=== PATIENT | female | born 1950 | race Caucasian/White ===

== ENCOUNTER 2017-11-12 21:24 | Observation (INO) | payer MEDICARE, OTHER ==
[~2017-11-12] VITALS: Ht 160 cm; Wt 82.9 kg
[~2017-11-12 21:24] MED LIST: ALDA2525 PO; ASPI1TAB69 PO; CLOB0.055 TOPICAL; CYCL10TA PO; DICY10CA12 PO; FLUO0.05 TOPICAL; LATA.005%O EACH EYE; MONT10TA2 PO; OMEP20TA93 PO; PROM25TA10 PO
[2017-11-12 21:35] VITALS: BP 201/101; PULSE 77; RESP 20; TEMP 97.9; O2SAT 96
[2017-11-12 21:40] VITALS: BP 189/99; PULSE 66; RESP 16; O2SAT 99
[2017-11-12 22:26] LABS: AUTOMATED NEUTROPHIL # 2.7 TH/MM3 (1.8-7.7); BASOPHIL # 0.2 TH/MM3 (0-0.2); BASOPHIL % 3.4 % (0.0-2.0); EOSINOPHIL # 0.3 TH/MM3 (0-0.4); EOSINOPHIL % 3.8 % (0.0-4.0); HEMATOCRIT 42.4 % (35.0-46.0); HEMOGLOBIN 13.2 GM/DL (11.6-15.3); LYMPH % 47.7 % (9.0-44.0); LYMPHOCYTE # 3.3 TH/MM3 (1.0-4.8); MEAN CELL VOLUME 85.9 FL (80.0-100.0); MEAN CORPUSCULAR HEMOGLOBIN 26.8 PG (27.0-34.0); MEAN CORPUSCULAR HGB CONC 31.2 % (32.0-36.0); MONO % 6.8 % (0.0-8.0); MONOCYTE # 0.5 TH/MM3 (0-0.9); NEUT % 38.3 % (16.0-70.0); PLATELET COUNT 265 TH/MM3 (150-450); RED BLOOD COUNT 4.94 MIL/MM3 (4.00-5.30); RED CELL DISTRIBUTION WIDTH 16.6 % (11.6-17.2)
[2017-11-12 22:33] LABS: CHLORIDE 108 MEQ/L (98-107); SODIUM (NA) 141 MEQ/L (136-145)
[2017-11-12 22:36] LABS: ALBUMIN 3.4 GM/DL (3.4-5.0); BICARBONATE 25.6 MEQ/L (21.0-32.0); CALCIUM 9.4 MG/DL (8.5-10.1); GLUCOSE,RANDOM 101 MG/DL (74-106)
[2017-11-12 22:37] LABS: BLOOD UREA NITROGEN 17 MG/DL (7-18)
[2017-11-12 22:39] LABS: ALT (GPT) 81 U/L (10-53); AST (GOT) 51 U/L (15-37)
[2017-11-12 22:40] LABS: CREATININE 0.84 MG/DL (0.50-1.00); GLOMERULAR FILTRATION RATE 68 ML/MIN (>89)
[2017-11-12 22:41] LABS: TOTAL BILIRUBIN ADULT 0.3 MG/DL (0.2-1.0); TOTAL PROTEIN 7.9 GM/DL (6.4-8.2)
[2017-11-12 22:42] LABS: ALKALINE PHOSPHATASE 107 U/L (45-117)
[2017-11-12 22:44] LABS: TROPONIN I 0.18 NG/ML (0.02-0.05)
[2017-11-12 22:47] VITALS: BP 166/94; PULSE 78; RESP 16; O2SAT 98
--- NOTE | 2017-11-12 23:11 | PD ---
HPI Chief Complaint: Chest Pain Time Seen by Provider: 22:49 Travel History International Travel<30 days: No Contact w/Intl Traveler<30days: No Traveled to known affect area: No History of Present Illness HPI The patient is a 67-year-old female with a history of heart disease who complains of multiple types of chest pain beginning yesterday. She has tightness in her chest but also some sharp pains in her right chest. She does have nausea, shortness of breath as well as some diaphoresis. She does have radiation to her jaw and left arm. She denies any fever. She also complains of some slight vertigo and nausea and a headache. She does have a history of anxiety. Dr. jacobo is her management scientist. She does not have a primary care physician. She does have a history of hypertension and migraine headaches as well as seizures. PFSH Past Medical History Hx Anticoagulant Therapy: Yes (ASA) Autoimmune Disease: No Anxiety: Yes Cancer: No Cardiovascular Problems: Yes (HEART FAILURE) Chest Pain: Yes Diabetes: No Diminished Hearing: No Endocrine: No Gastrointestinal Disorders: Yes GERD: Yes Glaucoma: Yes Genitourinary: No Headaches: No Hepatitis: No Hiatal Hernia: No Hypertension: Yes Immune Disorder: No Implanted Vascular Access Dvce: Yes Medical other: No Musculoskeletal: Yes Neurologic: Yes Psychiatric: Yes Reproductive: No Respiratory: Yes Immunizations Current: Yes Migraines: Yes Seizures: Yes Thyroid Disease: No PNEUMOCCOCAL Vaccine (Year): 2 Menopausal: Yes Past Surgical History Abdominal Surgery: No Cardiac Surgery: No Section: Yes Ear Surgery: No Endocrine Surgery: No Eye Surgery: Yes (CATARACT REMOVAL) Genitourinary Surgery: No Gynecologic Surgery: Yes (PART HYST) Hysterectomy: Yes (PARTIAL) Neurologic Surgery: No Oral Surgery: No Pacemaker: No Thoracic Surgery: No Other Surgery: Yes Social History Alcohol Use: No Tobacco Use: No Substance Use: No Allergies-Medications (Allergen,Severity, Reaction): Coded Allergies: diclofenac (Unverified Allergy, Severe, 09/05/17) etodolac (Unverified Allergy, Severe, 09/05/17) flurbiprofen (Unverified Allergy, Severe, 09/05/17) ibuprofen (Unverified Allergy, Severe, 09/05/17) indomethacin (Unverified Allergy, Severe, 09/05/17) ketoprofen (Unverified Allergy, Severe, 09/05/17) ketorolac (Unverified Allergy, Severe, 09/05/17) naproxen (Unverified Allergy, Severe, 09/05/17) oxaprozin (Unverified Allergy, Severe, 09/05/17) tizanidine (Unverified Allergy, Severe, DRY MOUTH, DIZZINESS, 09/05/17) cortisone (Unverified Allergy, Mild, HAS GLAUCOMA AND WAS TOLD NEVER TO TAKE CORTISONE, 09/05/17) Uncoded Allergies: antihistamine (Adverse Reaction, Intermediate, headaches, 09/17/12) Reported Meds & Prescriptions Reported Meds & Active Scripts Active Phenergan (Promethazine HCl) 25 Mg Tablet 25 Mg PO Q6H PRN Singulair (Montelukast Sodium) 10 Mg Tab 10 Mg PO HS Omeprazole 20 Mg Tab 20 Mg PO DAILY Dicyclomine (Dicyclomine HCl) 10 Mg Cap 10 Mg PO TID PRN Flexeril (Cyclobenzaprine HCl) 10 Mg Tab 10 Mg PO BID Reported Xalatan Opth Drops (Latanoprost) 0.005% Drops 1 Drop EACH EYE HS Aldactazide (HCTZ/Spironolactone) 25-25 Mg Tab 1 Tab PO BIDPC Review of Systems Except as stated in HPI: all other systems reviewed are Neg Physical Exam Narrative GENERAL: The patient is anxious, alert, oriented 3 and slight apparent distress with her chest pains. Her vital signs show blood pressure 166/94 but are otherwise normal. SKIN: Focused skin assessment warm/dry. No skin rash is seen. HEAD: Atraumatic. Normocephalic. EYES: Pupils equal and round. No scleral icterus. No injection or drainage. ENT: No nasal bleeding or discharge. Mucous membranes pink and moist. NECK: Trachea midline. No JVD. CARDIOVASCULAR: Regular rate and rhythm. No murmur appreciated. RESPIRATORY: No accessory muscle use. Clear to auscultation. Breath sounds equal bilaterally. I can reproduce completely some of the patient's chest pain by pressing on the chest wall. The patient has multiple chest pain sensations and I cannot reproduce the tightness. GASTROINTESTINAL: Abdomen soft, non-tender, nondistended. Hepatic and splenic margins not palpable. MUSCULOSKELETAL: No obvious deformities. No clubbing. No cyanosis. No edema. NEUROLOGICAL: Awake and alert. No obvious cranial nerve deficits. Motor grossly within normal limits. Normal speech. PSYCHIATRIC: Appropriate mood and affect; insight and judgment normal. Data Data Last Documented VS Vital Signs Date Time Temp Pulse Resp B/P (MAP) Pulse Ox O2 Delivery O2 Flow Rate FiO2 11/12/17 22:47 78 16 166/94 (118) 98 Room Air 11/12/17 21:35 97.9 Orders Orders Complete Blood Count With Diff (11/12/17 22:13) Troponin I (11/12/17 22:13) Basic Metabolic Panel (Bmp) (11/12/17 22:13) Comprehensive Metabolic Panel (11/12/17 22:13) Electrocardiogram (11/12/17 ) Chest, Single Ap (11/12/17 ) B-Type Natriuretic Peptide (11/12/17 23:13) Labs Laboratory Tests Test 11/12/17 22:00 White Blood Count 7.0 TH/MM3 Red Blood Count 4.94 MIL/MM3 Hemoglobin 13.2 GM/DL Hematocrit 42.4 % Mean Corpuscular Volume 85.9 FL Mean Corpuscular Hemoglobin 26.8 PG Mean Corpuscular Hemoglobin Concent 31.2 % Red Cell Distribution Width 16.6 % Platelet Count 265 TH/MM3 Mean Platelet Volume 9.0 FL Neutrophils (%) (Auto) 38.3 % Lymphocytes (%) (Auto) 47.7 % Monocytes (%) (Auto) 6.8 % Eosinophils (%) (Auto) 3.8 % Basophils (%) (Auto) 3.4 % Neutrophils # (Auto) 2.7 TH/MM3 Lymphocytes # (Auto) 3.3 TH/MM3 Monocytes # (Auto) 0.5 TH/MM3 Eosinophils # (Auto) 0.3 TH/MM3 Basophils # (Auto) 0.2 TH/MM3 CBC Comment DIFF FINAL Differential Comment Blood Urea Nitrogen 17 MG/DL Creatinine 0.84 MG/DL Random Glucose 101 MG/DL Total Protein 7.9 GM/DL Albumin 3.4 GM/DL Calcium Level 9.4 MG/DL Alkaline Phosphatase 107 U/L Aspartate Amino Transf (AST/SGOT) 51 U/L Alanine Aminotransferase (ALT/SGPT) 81 U/L Total Bilirubin 0.3 MG/DL Sodium Level 141 MEQ/L Potassium Level 3.8 MEQ/L Chloride Level 108 MEQ/L Carbon Dioxide Level 25.6 MEQ/L Anion Gap 7 MEQ/L Estimat Glomerular Filtration Rate 68 ML/MIN Troponin I 0.18 NG/ML MDM Medical Decision Making Medical Screen Exam Complete: Yes Emergency Medical Condition: Yes Medical Record Reviewed: Yes Interpretation(s) The EKG shows sinus rhythm with left ventricular hypertrophy and an old inferior myocardial infarction with Q waves in 3 and aVF. There is no acute ST elevation present. The troponin I is 0.18. [place] 68, GOT of 51, GPT of 81 but is otherwise unremarkable. The CBC is normal. Differential Diagnosis Acute coronary syndrome, chest wall pain, anxiety, congestive heart failure Narrative Course The patient has multiple chest pains, some of which are clearly musculoskeletal in nature and others which are concerning for cardiac type pain. The patient is anxious and has multiple complaints other than chest pain. She has nausea, headache. The patient does have a slight troponin I elevation at this time and has had elevation or troponin I for prolonged period of time in 2016. I discussed the patient with Dr. Copeland, the patient will be 23 hour observation to her. She will be admitted to [place]. Physician Communication Physician Communication I discussed the patient with Dr. Copeland. Admitting Information Admitting Physician Requests: Observation Robbie Hitchcock MD Nov 12, 2017 23:11
--- NOTE | 2017-11-12 23:19 | RADRPT ---
EXAM DATE/TIME: 11/12/2017 23:04 [facility] COMPARISON: CHEST PA & LAT, October 07, 2016, 14:47. INDICATIONS : Chest pain MEDICAL HISTORY : None. SURGICAL HISTORY : Cardiac stents. ENCOUNTER: Initial ACUITY: 1 day PAIN SCORE: 10/10 LOCATION: Bilateral chest FINDINGS: The lungs are clear without infiltrate, nodule, or mass. There is no appreciable pleural effusion fo r technique. Heart and mediastinum are unremarkable. CONCLUSION: No acute cardiopulmonary disease. Bg Blackwell MD on November 12, 2017 at 23:17 Board Certified Radiologist. This report was verified electronically.
[2017-11-12] MEDS ORDERED: ALPRAZolam 0.25 MG TAB PO PRN (23:30)
[2017-11-12] MEDS ORDERED: ACETAMINOPHEN 500 MG CPLT PO PRN (23:30)
[2017-11-12] MEDS: LATANOPROST 0.005% OPHT SOLN 2.5 ML BTL EACH EYE SCH (23:30)
[2017-11-12] MEDS ORDERED: ONDANSETRON HCL 4 MG/2 ML VIAL IV PUSH PRN (23:30)
[2017-11-12] MEDS ORDERED: NITROGLYCERIN 0.4 MG SL 25 TABS/BTL SL PRN (23:30)
[2017-11-12] MEDS ORDERED: SODIUM CHLORIDE 0.9% FLUSH 10 ML FLUSH IV FLUSH PRN (23:30)
[2017-11-12 23:38] VITALS: BP 199/100; PULSE 78; RESP 16; O2SAT 100
[2017-11-13] VITALS (11 sets, daily range): BP systolic 117–198; BP diastolic 69–98; PULSE 61–86; RESP 14–20; TEMP 96.1–98; O2SAT 94–99
[2017-11-13] MEDS ORDERED: HEPARIN SODIUM - SQ 10,000 UNITS/ML VIAL SQ SCH
[2017-11-13 04:59] LABS: TROPONIN I 0.18 NG/ML (0.02-0.05)
[2017-11-13] MEDS ORDERED: HEPARIN-D5W 25,000 U/250 ML 250 ML IV PRN (08:30)
[2017-11-13] MEDS ORDERED: SPIRONOLACTONE/HCTZ 25 MG/25 MG TAB PO SCH (09:00)
[2017-11-13 09:16] LABS: HEMATOCRIT 38.7 % (35.0-46.0); HEMOGLOBIN 12.8 GM/DL (11.6-15.3); MEAN CORPUSCULAR HEMOGLOBIN 27.8 PG (27.0-34.0); MEAN CORPUSCULAR HGB CONC 33.1 % (32.0-36.0); MEAN PLATELET VOLUME 8.3 FL (7.0-11.0); PLATELET COUNT 210 TH/MM3 (150-450); RED CELL DISTRIBUTION WIDTH 15.6 % (11.6-17.2); WHITE BLOOD COUNT 6.1 TH/MM3 (4.0-11.0)
[2017-11-13] MEDS: SPIRONOLACTONE 25 MG TAB PO SCH ×2 (09:35→17:47)
[2017-11-13] MEDS: SODIUM CHLORIDE 0.9% FLUSH 10 ML FLUSH IV FLUSH SCH ×2 (09:35→20:37)
[2017-11-13] MEDS: HYDROCHLOROTHIAZIDE 25 MG TAB PO SCH ×2 (09:35→17:47)
[2017-11-13] MEDS: PANTOPRAZOLE SOD 20 MG DELAYED RELEASE TAB PO SCH (09:35)
[2017-11-13 09:59] LABS: TROPONIN I 0.17 NG/ML (0.02-0.05)
--- NOTE | 2017-11-13 11:45 | HHI.HP ---
[facility] No Primary Care Physician Admission Diagnosis Chest pain Diagnoses: (1) Atypical chest pain Chief Complaint: Multiple complaints Travel History International Travel<30 Days: No Contact w/Intl Traveler <30 Da: No Traveled to Known Affected Are: No History of Present Illness Written by Oliva Mann, acting as scribe for Dr. Darling on 11/13/17 at 11:28. Ms. Moreno is a 67-year-old female patient with a known medical history of CHF , HTN, GERD and CAD with stent placement who presented to the ED with multiple complaints including chest pain, headache, dizziness and left arm numbness. Patient states she has noticed this chest pain x 1 week, intermittent and sharp , stabbing, and "spasm-like" in nature, occurs more with exertion, located in her midsternal chest but states sometimes it occurs "all over her chest area" with associated nausea, dizziness, headache, toothaches, and left arm numbness. Patient states she has also been checking her BP at home with increased readings some as high as 200/110. Denies any palpitations or vomiting. Denies any new changes to her medications. Does admit to subjective fevers but has not taken her temperature at home. Does also complain of diarrhea x 4 days and an intermittent right upper quadrant, sharp pain. At the time of assessment patient states that her symptoms have resolved and has had no new complaints overnight. Patient does see Dr. Diaz in the office. She also suffered from a cardiac arrest and did undergo a cardiac catheterization in February of 2016. Denies following with a PCP. Last ECHO was done a few months ago showing an EF of 35%. Positive Ford's sign present on examination. Review of Systems Constitutional: COMPLAINS OF: Fever, Chills Eyes: DENIES: Blurred vision, Diplopia Respiratory: COMPLAINS OF: Cough, DENIES: Shortness of breath Cardiovascular: COMPLAINS OF: Chest pain, Palpitations Gastrointestinal: COMPLAINS OF: Abdominal pain (right UQ), Diarrhea, Nausea, DENIES: Black stools, Bloody stools, Vomiting Psychiatric: COMPLAINS OF: Anxiety Except as stated in HPI: all other systems reviewed are Neg Past Family Social History Past Medical History Hypertension including multiple episodes of hypertensive urgencies. Traumatic brain injury 2009 Chronic headache Vertigo Cardiac arrest 2016 Cardiac catheterization with stent and pacemaker placement 2016. Past Surgical History Knee surgery Partial Hysterectomy Pacemaker placement 2016 Cataract removal Reported Medications Active Phenergan (Promethazine HCl) 25 Mg Tablet 25 Mg PO Q6H PRN Singulair (Montelukast Sodium) 10 Mg Tab 10 Mg PO HS Omeprazole 20 Mg Tab 20 Mg PO DAILY Dicyclomine (Dicyclomine HCl) 10 Mg Cap 10 Mg PO TID PRN Flexeril (Cyclobenzaprine HCl) 10 Mg Tab 10 Mg PO BID Reported Xalatan Opth Drops (Latanoprost) 0.005% Drops 1 Drop EACH EYE HS Aldactazide (HCTZ/Spironolactone) 25-25 Mg Tab 1 Tab PO BIDPC Allergies: Coded Allergies: diclofenac (Unverified Allergy, Severe, 09/05/17) etodolac (Unverified Allergy, Severe, 09/05/17) flurbiprofen (Unverified Allergy, Severe, 09/05/17) ibuprofen (Unverified Allergy, Severe, 09/05/17) indomethacin (Unverified Allergy, Severe, 09/05/17) ketoprofen (Unverified Allergy, Severe, 09/05/17) ketorolac (Unverified Allergy, Severe, 09/05/17) naproxen (Unverified Allergy, Severe, 09/05/17) oxaprozin (Unverified Allergy, Severe, 09/05/17) tizanidine (Unverified Allergy, Severe, DRY MOUTH, DIZZINESS, 09/05/17) cortisone (Unverified Allergy, Mild, HAS GLAUCOMA AND WAS TOLD NEVER TO TAKE CORTISONE, 09/05/17) Uncoded Allergies: antihistamine (Adverse Reaction, Intermediate, headaches, 09/17/12) Active Ordered Medications Current Medications Medications (Trade) Dose Ordered Sig/Jossie Route Start Time Stop Time Status Last Admin (NS Flush) 2 ml BID IV FLUSH 11/13/17 09:00 11/13/17 09:35 (NS Flush) 2 ml UNSCH PRN IV FLUSH 11/12/17 23:30 (Nitrostat Sl) 0.4 mg Q5M PRN SL 11/12/17 23:30 (Tylenol) 500 mg Q4H PRN PO 11/12/17 23:30 (Xanax) 0.25 mg TID PRN PO 11/12/17 23:30 11/13/17 00:24 (Zofran Inj) 4 mg Q6HR PRN IV PUSH 11/12/17 23:30 (Xalatan 0.005% Opth Soln) 1 drop HS EACH EYE 11/12/17 23:30 (Protonix) 20 mg DAILY PO 11/13/17 09:00 11/13/17 09:35 (Aldactone) 25 mg BIDPC PO 11/13/17 09:00 11/13/17 09:35 (Hydrodiuril) 25 mg BIDPC PO 11/13/17 09:00 11/13/17 09:35 Family History Maternal medical history significant for Rheumatic fever. Paternal medical history significant for stroke, at the age of 70 years. Positive cardiovascular history. Social History Denies any current tobacco, alcohol or illicit drug use. Physical Exam Vital Signs Vital Signs Date Time Temp Pulse Resp B/P (MAP) Pulse Ox O2 Delivery O2 Flow Rate FiO2 11/13/17 08:00 96.1 61 18 135/84 (101) 96 11/13/17 04:00 96.4 63 20 145/76 (99) 95 Manual Cuff/Auscultation 11/13/17 03:15 69 11/13/17 02:50 98.0 73 20 138/98 (111) 98 Automatic Cuff 11/13/17 02:24 11/13/17 01:04 86 16 165/74 (104) 99 11/13/17 00:13 78 16 198/82 (120) 99 Room Air 11/12/17 23:38 78 16 199/100 (133) 100 Room Air 11/12/17 22:47 78 16 166/94 (118) 98 Room Air 11/12/17 21:40 66 16 189/99 (129) 99 Room Air 11/12/17 21:35 97.9 77 20 201/101 (134) 96 Physical Exam GENERAL: This is a well-nourished, well-developed patient, in no apparent distress. SKIN: No rashes, ecchymoses or lesions. Cool and dry. HEAD: Atraumatic. Normocephalic. EYES: Pupils equal round and reactive. Extraocular motions intact. No scleral icterus. No injection or drainage. ENT: Nose without bleeding, purulent drainage or septal hematoma. Airway patent. NECK: Trachea midline. No JVD or lymphadenopathy. Supple. CARDIOVASCULAR: Regular rate and rhythm without murmurs, gallops, or rubs. No reproducible chest discomfort. RESPIRATORY: Clear to auscultation. Breath sounds equal bilaterally. No wheezes , rales, or rhonchi. GASTROINTESTINAL: Abdomen soft, non-tender, nondistended. No guarding. Positive Ford's sign. MUSCULOSKELETAL: Extremities without clubbing, cyanosis, or edema. NEUROLOGICAL: Awake and alert. Cranial nerves II through XII intact. No focal neurological deficits Normal speech. Laboratory Laboratory Tests Test 11/12/17 22:00 11/13/17 04:20 11/13/17 09:10 White Blood Count 7.0 6.1 Red Blood Count 4.94 4.60 Hemoglobin 13.2 12.8 Hematocrit 42.4 38.7 Mean Corpuscular Volume 85.9 84.0 Mean Corpuscular Hemoglobin 26.8 27.8 Mean Corpuscular Hemoglobin Concent 31.2 33.1 Red Cell Distribution Width 16.6 15.6 Platelet Count 265 210 Mean Platelet Volume 9.0 8.3 Neutrophils (%) (Auto) 38.3 Lymphocytes (%) (Auto) 47.7 Monocytes (%) (Auto) 6.8 Eosinophils (%) (Auto) 3.8 Basophils (%) (Auto) 3.4 Neutrophils # (Auto) 2.7 Lymphocytes # (Auto) 3.3 Monocytes # (Auto) 0.5 Eosinophils # (Auto) 0.3 Basophils # (Auto) 0.2 CBC Comment DIFF FINAL Differential Comment Blood Urea Nitrogen 17 Creatinine 0.84 Random Glucose 101 Total Protein 7.9 Albumin 3.4 Calcium Level 9.4 Alkaline Phosphatase 107 Aspartate Amino Transf (AST/SGOT) 51 Alanine Aminotransferase (ALT/SGPT) 81 Total Bilirubin 0.3 Sodium Level 141 Potassium Level 3.8 Chloride Level 108 Carbon Dioxide Level 25.6 Anion Gap 7 Estimat Glomerular Filtration Rate 68 Troponin I 0.18 0.18 0.17 B-Type Natriuretic Peptide 128 Total Creatine Kinase 44 40 Prothrombin Time 10.0 Prothromb Time International Ratio 1.0 Activated Partial Thromboplast Time 24.5 Result Diagram: 11/13/17 0910 11/12/17 2200 Imaging Last Impressions Chest X-Ray 11/12/17 0000 Signed Impressions: Service Date/Time: Sunday, November 12, 2017 23:04 - CONCLUSION: No acute cardiopulmonary disease. Bg Blackwell MD Septic Shock Reassessment Septic shock perfusion: reassessment completed Caprini VTE Risk Assessment Caprini VTE Risk Assessment: Mod/High Risk (score >= 2) Caprini Risk Assessment Model Point Value = 1 Point Value = 2 Point Value = 3 Point Value = 5 Age 41-60 Minor surgery BMI > 25 kg/m2 Swollen legs Varicose veins or History of unexplained or recurrent spontaneous Oral contraceptives or hormone replacement Sepsis (< 1 month) Serious lung disease, including pneumonia (< 1 month) Abnormal pulmonary function Acute myocardial infarction Congestive heart failure (< 1 month) History of inflammatory bowel disease Medical patient at bed rest Age 61-74 Arthroscopic surgery Major open surgery (> 45 min) Laparoscopic surgery (> 45 min) Malignancy Confined to bed (> 72 hours) Immobilizing plaster cast Central venous access Age >= 75 History of VTE Family history of VTE Factor V Leiden Prothrombin [id number] Lupus anticoagulant Anticardiolipin antibodies Elevated serum homocysteine Heparin-induced thrombocytopenia Other congenital or acquired thrombophilia Stroke (< 1 month) Elective arthroplasty Hip, pelvis, or leg fracture Acute spinal cord injury (< 1 month) Prophylaxis Regimen Total Risk Factor Score Risk Level Prophylaxis Regimen 0-1 Low Early ambulation 2 Moderate Order ONE of the following: *Sequential Compression Device (SCD) *Heparin 5000 units SQ BID 3-4 Higher Order ONE of the following medications: *Heparin 5000 units SQ TID *Enoxaparin/Lovenox 40 mg SQ daily (WT < 150 kg, CrCl > 30 mL/min) *Enoxaparin/Lovenox 30 mg SQ daily (WT < 150 kg, CrCl > 10-29 mL/min) *Enoxaparin/Lovenox 30 mg SQ BID (WT < 150 kg, CrCl > 30 mL/min) AND/OR *Sequential Compression Device (SCD) 5 or more Highest Order ONE of the following medications: *Heparin 5000 units SQ TID (Preferred with Epidurals) *Enoxaparin/Lovenox 40 mg SQ daily (WT < 150 kg, CrCl > 30 mL/min) *Enoxaparin/Lovenox 30 mg SQ daily (WT < 150 kg, CrCl > 10-29 mL/min) *Enoxaparin/Lovenox 30 mg SQ BID (WT < 150 kg, CrCl > 30 mL/min) AND *Sequential Compression Device (SCD) Assessment and Plan Assessment and Plan Ms. Moreno is a 65-year-old female with a history of STEMI status post cardiac arrest and cardiac catheterization with PCI/stent in 2016 who presented to the emergency department today due to multiple complaints including chest pain, headache, dizziness and left arm numbness. Atypical chest pain: Serial EKGs and serial troponins have been ordered for ruling out ACS purposes. Troponins flat but slightly elevated, 0.18, 0.18, 0.17. She appears to have chronically elevated troponins. Spoke to Dr. Alexander who is covering for Dr. Diaz, patient's taxonomist, who has been consulted. Plan is to see her this afternoon. Chest pain has resolved. EKG reviewed showing NSR with controlled heart rate, no acute ST elevation seen. Right upper quadrant abdominal pain: Positive Ford's sign. Will order Gallbladder ultrasound. Follow. Zofran available PRN as needed. Hypertension, chronic: Continue home Spirolactone and HCTZ. Monitor BP trends. GERD: Protonix. Anxiety, chronic: Continue home Alprazolam. This note was transcribed by CRYSTAL Caicedo. I, Dr. Shana Darling personally performed the history, physical exam, and medical decision making; and confirmed the accuracy of the information in the transcribed note. Authenticated by Dr. Shana Darling on 11/13/17 at 11:28. Oliva Mann Nov 13, 2017 11:45 Shana Darling MD Nov 13, 2017 12:53
--- NOTE | 2017-11-13 12:49 | EKG ---
Date Performed: 11/13/2017 Time Performed: 09:04:33 PTAGE: 67 years EKG: Sinus rhythm INFERIOR MYOCARDIAL INFARCTION ABNORMAL ECG Since PREVIOUS TRACING , no significant change noted PREVIOUS TRACIN11/13/2017 04.14 DOCTOR: Shaye Martinez Interpretating Date/Time 11/13/2017 12:47:57
--- NOTE | 2017-11-13 12:52 | EKG ---
Date Performed: 11/13/2017 Time Performed: 04:14:09 PTAGE: 67 years EKG: Sinus rhythm INFERIOR MYOCARDIAL INFARCTION ABNORMAL ECG Since PREVIOUS TRACING , no significant change noted PREVIOUS TRACIN11/12/2017 21.56 DOCTOR: Shaye Martinez Interpretating Date/Time 11/13/2017 12:51:29
--- NOTE | 2017-11-13 12:54 | EKG ---
Date Performed: 11/12/2017 Time Performed: 21:56:23 PTAGE: 67 years EKG: Sinus rhythm LEFT VENTRICULAR HYPERTROPHY ST-T CHANGE FROM LVH OR ISCHEMIA POSSIBLE ANTERIOR MYOCARDIAL INFARCTI ON INFERIOR MYOCARDIAL INFARCTION ABNORMAL ECG Since PREVIOUS TRACING , no significant change noted PREVIOUS TRACIN04/01/2016 21.42 DOCTOR: Shaye Martinez Interpretating Date/Time 11/13/2017 12:54:04
--- NOTE | 2017-11-13 13:17 | RADRPT ---
EXAM DATE/TIME: 11/13/2017 12:40 [facility] COMPARISON: No previous studies available for comparison. EXTERNAL COMPARISON : [facility], MRA ABDOMEN, September 20, 2012, CT ABDOMEN & PELVIS W CONTRAST, August 15 2. INDICATIONS : Right upper quadrant pain. MEDICAL HISTORY : Myocardial infarction. Congestive heart failure. Glaucoma. Seizures. Migraines. Chest pain. HTN. Dy spnea. GERD. Fibroids. Anxiety. Anticoagulant therapy, Apsirin. SURGICAL HISTORY : section. Cataracts removed with lens implants. Partial hysterectomy. Bilateral knee arth roplasty. ENCOUNTER: Initial ACUITY: 1 day PAIN SCORE: 4/10 LOCATION: Right upper quadrant MEASUREMENTS: LIVER: 15.6 cm length COMMON DUCT: 6 mm RIGHT KIDNEY: 11.6 x 4.8 x 5.3 cm FINDINGS: LIVER: Normal echotexture without focal lesion or ductal dilatation. Portal vein is patent. COMMON DUCT: No intraluminal mass or stone visualized. GALLBLADDER: At least one large stone with acoustic shadowing is identified in the gallbladder. It measures 2.4 x 1.9 x 2.6 cm in size. There is no evidence of wall thickening or pericholecystic fluid. PANCREAS: The visualized portions are within normal limits. RIGHT KIDNEY: No evidence of hydronephrosis, stone, or mass. CONCLUSION: 1. Single large gallstone without evidence of gallbladder wall thickening or pericholecystic fluid. 2. Otherwise normal exam. Aleksandr Noble MD on November 13, 2017 at 13:13 Board Certified Radiologist. This report was verified electronically.
[2017-11-13] MEDS ORDERED: REGADENOSON INJ 0.4 MG/5 ML SYR IV ONE (13:29)
--- NOTE | 2017-11-13 15:28 | PD.CONS ---
HPI Consult Requested By Primary Care Physician No Primary Care Physician History of Present Illness 67-year-old female with a past medical history of STEMI, cardiac arrest, cardiomyopathy, CHF, HTN who presented with multiple complaints. Patient states that she has been having headache, bilateral arm numbness, right upper quadrant pain, chest pain. She states that she's been having bilateral arm numbness constantly for the past several months. She also reports pain in her right upper quadrant and in her jaw that can last constantly for days. Occasionally she gets a second of sharp stabbing pain in different areas of her chest. She feels like these episodes are exacerbated by high blood pressure. She states that she was feeling dry, called her PCP about stopping her diuretic , and was stopped on HCTZ last week. She states her systolic blood pressure has been over 200 since then with associated headache. She is not very active and doesn't exert herself much. No shortness of breath or lower extremity swelling. Review of Systems Negative except as stated in the history of present illness Past Family Social History Allergies: Coded Allergies: diclofenac (Unverified Allergy, Severe, 09/05/17) etodolac (Unverified Allergy, Severe, 09/05/17) flurbiprofen (Unverified Allergy, Severe, 09/05/17) ibuprofen (Unverified Allergy, Severe, 09/05/17) indomethacin (Unverified Allergy, Severe, 09/05/17) ketoprofen (Unverified Allergy, Severe, 09/05/17) ketorolac (Unverified Allergy, Severe, 09/05/17) naproxen (Unverified Allergy, Severe, 09/05/17) oxaprozin (Unverified Allergy, Severe, 09/05/17) tizanidine (Unverified Allergy, Severe, DRY MOUTH, DIZZINESS, 09/05/17) cortisone (Unverified Allergy, Mild, HAS GLAUCOMA AND WAS TOLD NEVER TO TAKE CORTISONE, 09/05/17) Uncoded Allergies: antihistamine (Adverse Reaction, Intermediate, headaches, 09/17/12) Past Medical History Hypertension including multiple episodes of hypertensive urgencies. Traumatic brain injury 2009 Chronic headache Vertigo Cardiac arrest 2016 STEMI with catheterization with stent and pacemaker placement 2016. Cardiomyopathy, EF 35%. Past Surgical History Knee surgery Partial Hysterectomy Pacemaker placement 2016 Cataract removal Reported Medications Reported Meds & Active Scripts Active Phenergan (Promethazine HCl) 25 Mg Tablet 25 Mg PO Q6H PRN Singulair (Montelukast Sodium) 10 Mg Tab 10 Mg PO HS Omeprazole 20 Mg Tab 20 Mg PO DAILY Dicyclomine (Dicyclomine HCl) 10 Mg Cap 10 Mg PO TID PRN Flexeril (Cyclobenzaprine HCl) 10 Mg Tab 10 Mg PO BID Reported Xalatan Opth Drops (Latanoprost) 0.005% Drops 1 Drop EACH EYE HS Aldactazide (HCTZ/Spironolactone) 25-25 Mg Tab 1 Tab PO BIDPC Active Ordered Medications Current Medications Medications (Trade) Dose Ordered Sig/Jossie Route Start Time Stop Time Status Last Admin (NS Flush) 2 ml BID IV FLUSH 11/13/17 09:00 11/13/17 09:35 (NS Flush) 2 ml UNSCH PRN IV FLUSH 11/12/17 23:30 (Nitrostat Sl) 0.4 mg Q5M PRN SL 11/12/17 23:30 (Tylenol) 500 mg Q4H PRN PO 11/12/17 23:30 (Xanax) 0.25 mg TID PRN PO 11/12/17 23:30 11/13/17 00:24 (Zofran Inj) 4 mg Q6HR PRN IV PUSH 11/12/17 23:30 (Xalatan 0.005% Opth Soln) 1 drop HS EACH EYE 11/12/17 23:30 (Protonix) 20 mg DAILY PO 11/13/17 09:00 11/13/17 09:35 (Aldactone) 25 mg BIDPC PO 11/13/17 09:00 11/13/17 09:35 (Hydrodiuril) 25 mg BIDPC PO 11/13/17 09:00 11/13/17 09:35 Family History Maternal medical history significant for Rheumatic fever. Paternal medical history significant for stroke, at the age of 70 years. Positive cardiovascular history. Social History Denies any current tobacco, alcohol or illicit drug use. Physical Exam Vital Signs Vital Signs Date Time Temp Pulse Resp B/P (MAP) Pulse Ox O2 Delivery O2 Flow Rate FiO2 11/13/17 12:00 97.2 69 14 134/86 (102) 95 11/13/17 08:12 68 11/13/17 08:00 96.1 61 18 135/84 (101) 96 11/13/17 04:00 96.4 63 20 145/76 (99) 95 Manual Cuff/Auscultation 11/13/17 03:15 69 11/13/17 02:50 98.0 73 20 138/98 (111) 98 Automatic Cuff 11/13/17 02:24 11/13/17 01:04 86 16 165/74 (104) 99 11/13/17 00:13 78 16 198/82 (120) 99 Room Air 11/12/17 23:38 78 16 199/100 (133) 100 Room Air 11/12/17 22:47 78 16 166/94 (118) 98 Room Air 11/12/17 21:40 66 16 189/99 (129) 99 Room Air 11/12/17 21:35 97.9 77 20 201/101 (134) 96 Physical Exam GENERAL: Well-developed well-nourished. In no acute distress. Anxious. NECK: No carotid bruits. No JVD. CARDIOVASCULAR: Regular rate and rhythm. No murmur appreciated. RESPIRATORY: No accessory muscle use. Clear to auscultation. Breath sounds equal bilaterally. MUSCULOSKELETAL: No clubbing or cyanosis. No edema. NEUROLOGICAL: Awake and alert. Normal speech. Laboratory Laboratory Tests Test 11/12/17 22:00 11/13/17 04:20 11/13/17 09:10 White Blood Count 7.0 6.1 Red Blood Count 4.94 4.60 Hemoglobin 13.2 12.8 Hematocrit 42.4 38.7 Mean Corpuscular Volume 85.9 84.0 Mean Corpuscular Hemoglobin 26.8 27.8 Mean Corpuscular Hemoglobin Concent 31.2 33.1 Red Cell Distribution Width 16.6 15.6 Platelet Count 265 210 Mean Platelet Volume 9.0 8.3 Neutrophils (%) (Auto) 38.3 Lymphocytes (%) (Auto) 47.7 Monocytes (%) (Auto) 6.8 Eosinophils (%) (Auto) 3.8 Basophils (%) (Auto) 3.4 Neutrophils # (Auto) 2.7 Lymphocytes # (Auto) 3.3 Monocytes # (Auto) 0.5 Eosinophils # (Auto) 0.3 Basophils # (Auto) 0.2 CBC Comment DIFF FINAL Differential Comment Blood Urea Nitrogen 17 Creatinine 0.84 Random Glucose 101 Total Protein 7.9 Albumin 3.4 Calcium Level 9.4 Alkaline Phosphatase 107 Aspartate Amino Transf (AST/SGOT) 51 Alanine Aminotransferase (ALT/SGPT) 81 Total Bilirubin 0.3 Sodium Level 141 Potassium Level 3.8 Chloride Level 108 Carbon Dioxide Level 25.6 Anion Gap 7 Estimat Glomerular Filtration Rate 68 Troponin I 0.18 0.18 0.17 B-Type Natriuretic Peptide 128 Total Creatine Kinase 44 40 Prothrombin Time 10.0 Prothromb Time International Ratio 1.0 Activated Partial Thromboplast Time 24.5 Result Diagram: 11/13/17 0910 11/12/17 2200 Imaging Last Impressions Gall Bladder Ultrasound 11/13/17 0000 Signed Impressions: Service Date/Time: Monday, November 13, 2017 12:40 - CONCLUSION: 1. Single large gallstone without evidence of gallbladder wall thickening or pericholecystic fluid. 2. Otherwise normal exam. Aleksandr Noble MD Chest X-Ray 11/12/17 0000 Signed Impressions: Service Date/Time: Sunday, November 12, 2017 23:04 - CONCLUSION: No acute cardiopulmonary disease. Bg Blackwell MD Assessment and Plan Assessment and Plan 67-year-old female with a past medical history of STEMI, cardiac arrest, cardiomyopathy, CHF, HTN who presented with multiple complaints. Patient states that she has been having headache, bilateral arm numbness, right upper quadrant pain, chest pain. She states that she's been having bilateral arm numbness constantly for the past several months. She also reports pain in her right upper quadrant and in her jaw that can last constantly for days. Occasionally she gets a second of sharp stabbing pain in different areas of her chest. She feels like these episodes are exacerbated by high blood pressure. She states that she was feeling dry, called her PCP about stopping her diuretic , and was stopped on HCTZ last week. She states her systolic blood pressure has been over 200 since then with associated headache. Atypical chest pain with history of CAD: Troponins 0.18, 0.18, 0.17, likely due to cardiomyopathy. Lexiscan pending. Cardiomyopathy/systolic CHF: Recent EF 35%. BNP 128. Well compensated. Echo ordered. Hypertension: Well controlled currently on previous home doses of HCTZ and spironolactone. RUQ pain: Patient's atypical chest pain possibly GI related. Workup per primary team. Gallbladder ultrasound noted. Anselmo Avilez Nov 13, 2017 15:28
--- NOTE | 2017-11-13 15:47 | RADRPT ---
EXAM DATE/TIME: 11/13/2017 12:52 [facility] COMPARISON: No previous studies available for comparison. INDICATIONS : Left sided chest pain with nausea and headache. Angina. DOSE: 25.4 mCi Tc99m Myoview at stress. 8.5 mCi Tc99m Myoview at rest. 0.4 mg Lexiscan STRESS SYMPTOMS: Dyspnea and arms tingling. EJECTION FRACTION: 43% MEDICAL HISTORY : Hypertension. Congestive heart failure. Gastroesophageal reflux disease. Coronary artery disease. SURGICAL HISTORY : Coronary artery stent. Pacemaker. Hysterectomy. ENCOUNTER: Initial ACUITY: 2 days PAIN SCALE: 5/10 LOCATION: Left chest TECHNIQUE: The patient underwent pharmacologic stress with infusion of prescribed dose. Continuous ECG tracing was monitored during stress. Gated SPECT imaging was performed after stress and conventional SPECT i maging was performed at rest. The examination was performed on a SPECT/CT scanner, both attenuation and non-corrected datasets were reviewed. FINDINGS: DISTRIBUTION: The maximum perfused segment at stress is in the anterior wall. PERFUSION STUDY: There is mildly diminished relative perfusion to the low anterior wall and cardiac apex. No evidence of redistribution. GATED STUDY: Mild global hypokinesis. CONCLUSION: Mild global hypokinesis. No significant reversible perfusion abnormalities. RISK CATEGORY: Intermediate (1-3% Annual Mortality Rate) Deepak Patel MD on November 13, 2017 at 15:43 Board Certified Radiologist. This report was verified electronically.
[2017-11-13] MEDS ORDERED: ACETAMINOPHEN/HYDROcodone 325 MG/5 MG TAB PO PRN (16:00)
[2017-11-13] MEDS: LATANOPROST 0.005% OPHT SOLN 2.5 ML BTL EACH EYE SCH (20:37)
[2017-11-14] VITALS: BP 118/75; PULSE 70; RESP 20; TEMP 96.7; O2SAT 93
[2017-11-14 04:00] VITALS: BP 143/86; PULSE 71; RESP 20; TEMP 96.1; O2SAT 92
[2017-11-14 08:00] VITALS: BP 118/66; PULSE 69; PULSE 75; RESP 18; TEMP 97.8; O2SAT 94
[2017-11-14] MEDS: PANTOPRAZOLE SOD 20 MG DELAYED RELEASE TAB PO SCH (08:18)
[2017-11-14] MEDS: SPIRONOLACTONE 25 MG TAB PO SCH (08:18)
[2017-11-14] MEDS: HYDROCHLOROTHIAZIDE 25 MG TAB PO SCH (08:19)
[2017-11-14] MEDS: SODIUM CHLORIDE 0.9% FLUSH 10 ML FLUSH IV FLUSH SCH (08:21)
--- NOTE | 2017-11-14 08:39 | HHI.PR ---
Subjective Remarks Patient is ambulating in the room says she feels much better and she wants to go home. No chest pain or shortness of breath no nausea or vomiting no diarrhea or constipation. No diaphoresis. Objective Vitals Vital Signs Date Time Temp Pulse Resp B/P (MAP) Pulse Ox O2 Delivery O2 Flow Rate FiO2 11/14/17 04:00 96.1 71 20 143/86 (105) 92 11/14/17 04:00 71 11/14/17 00:00 96.7 70 20 118/75 (89) 93 11/14/17 00:00 70 11/13/17 20:00 96.6 70 20 117/69 (85) 94 11/13/17 20:00 61 11/13/17 17:08 18 11/13/17 16:00 97.4 66 16 149/83 (105) 94 11/13/17 15:00 65 11/13/17 12:00 97.2 69 14 134/86 (102) 95 I/O 11/13/17 11/13/17 11/13/17 11/14/17 11/14/17 11/14/17 07:00 15:00 23:00 07:00 15:00 23:00 Intake Total 65 ml 480 ml 240 ml Balance 65 ml 480 ml 240 ml Intake Oral 50 ml 480 ml 240 ml IV Total 15 ml # Voids 2 5 1 # Bowel Movements 1 0 Result Diagram: 11/13/17 0910 11/12/17 2200 Imaging Last Impressions Myocardial Perfusion Scan Nuc Med 11/13/17 0000 Signed Impressions: Service Date/Time: Monday, November 13, 2017 12:52 - CONCLUSION: Mild global hypokinesis. No significant reversible perfusion abnormalities. RISK CATEGORY : Intermediate (1-3%% Annual Mortality Rate) Deepak Patel MD Gall Bladder Ultrasound 11/13/17 0000 Signed Impressions: Service Date/Time: Monday, November 13, 2017 12:40 - CONCLUSION: 1. Single large gallstone without evidence of gallbladder wall thickening or pericholecystic fluid. 2. Otherwise normal exam. Aleksandr Noble MD Chest X-Ray 11/12/17 0000 Signed Impressions: Service Date/Time: Sunday, November 12, 2017 23:04 - CONCLUSION: No acute cardiopulmonary disease. Bg Blackwell MD Objective Remarks GENERAL: This is a well-nourished, well-developed patient, in no apparent distress. CARDIOVASCULAR: Regular rate and rhythm without murmurs, gallops, or rubs. No reproducible chest discomfort. RESPIRATORY: Clear to auscultation. Breath sounds equal bilaterally. No wheezes , rales, or rhonchi. GASTROINTESTINAL: Abdomen soft, non-tender, nondistended. No guarding. Positive Ford's sign. MUSCULOSKELETAL: Extremities without clubbing, cyanosis, or edema. NEUROLOGICAL: Awake and alert. Cranial nerves II through XII intact. No focal neurological deficits Normal speech. A/P Problem List: (1) Atypical chest pain ICD Code: R07.89 - Other chest pain Assessment and Plan Ms. Moreno is a 65-year-old female with a history of STEMI status post cardiac arrest and cardiac catheterization with PCI/stent in 2016 who presented to the emergency department today due to multiple complaints including chest pain, headache, dizziness and left arm numbness. Atypical chest pain: Serial EKGs and serial troponins have been ordered for ruling out ACS purposes. Troponin flat but slightly elevated, 0.18, 0.18, 0.17. She appears to have chronically elevated troponins. Chest pain has resolved. EKG reviewed showing NSR with controlled heart rate, no acute ST elevation seen. Nuc scan reviewed mod risk, cardiology Dr Alexander cleared patient for discharge to follow-up as outpatient with cardiology Right upper quadrant abdominal pain: Positive Ford's sign. Gallbladder ultrasound reviewed with large stone however no signs of cholecystitis. Follow. Zofran available PRN as needed. Pain meds per pain scale Hypertension, chronic: Continue home Spirolactone and HCTZ. Monitor BP trends. GERD: Protonix. Anxiety, chronic: Continue home Alprazolam. Discussed with the patient, nurse DC plan: DC when cleared by cardiology Discharge Planning Discharge home in stable condition follow-up with PCP and consultants as outpatient Medications per medication reconciliation Activity ad bladimir. as tolerated Diet healthy heart diet Shana Darling MD Nov 14, 2017 08:39
--- NOTE | 2017-11-14 09:40 | ECHRPT ---
Indication: CHEST PAIN CONCLUSIONS Normal left ventricular size with upper normal wall thickness. The left ventricular systolic functio n is normal with an estimated ejection fraction in the range of 60-65%. Normal wall motion. Trace to mild aortic valve regurgitation. BP: 143 / 86 HR: 71 Rhythm: Sinus MEASUREMENTS (Male / Female) Normal Values Technical Quality:Technically difficult study 2D ECHO LV Diastolic Diameter PLAX 5.4 cm 4.2 - 5.9 / 3.9 - 5.3 cm LV Systolic Diameter PLAX 3.6 cm IVS Diastolic Thickness 1.3 cm 0.6 - 1.0 / 0.6 - 0.9 cm LVPW Diastolic Thickness 1.3 cm 0.6 - 1.0 / 0.6 - 0.9 cm LV Relative Wall Thickness 0.5 RV Internal Dim ED PLAX 2.6 cm LVOT Diameter 2.4 cm Aortic Root Diameter 4.3 cm LA Systolic Diameter LX 2.8 cm 3.0 - 4.0 / 2.7 - 3.8 cm M-MODE AV Cusp Separation MM 2.2 cm DOPPLER AV Peak Velocity 96.5 cm/s AV Peak Gradient 3.7 mmHg AV Mean Gradient 3.0 mmHg AV Velocity Time Integral 16.7 cm AI Peak Velocity 328.5 cm/s AI Peak Gradient 43.2 mmHg AI Pressure Half Time 778.5 ms LVOT Peak Velocity 89.5 cm/s LVOT Peak Gradient 3.2 mmHg LVOT Velocity Time Integral 15.4 cm LVOT Cardiac Index 2539.6 cm/minm AV Area Cont Eq vti 4.2 cm AV Area Cont Eq pk 4.2 cm Mitral E Point Velocity 59.2 cm/s Mitral A Point Velocity 78.0 cm/s Mitral E to A Ratio 0.8 LV E' Lateral Velocity 8.7 cm/s Mitral E to LV E' Lateral Ratio 6.8 LV E' Septal Velocity 3.4 cm/s Mitral E to LV E' Septal Ratio 17.4 PV Peak Velocity 63.2 cm/s PV Peak Gradient 1.6 mmHg FINDINGS LEFT VENTRICLE Normal left ventricular size with upper normal wall thickness. The left ventricular systolic functio n is normal with an estimated ejection fraction in the range of 60-65%. Normal wall motion. RIGHT VENTRICLE Normal right ventricular size and systolic function. LEFT ATRIUM The left atrial size is normal. RIGHT ATRIUM The right atrial size is normal. ATRIAL SEPTUM Normal atrial septal thickness without atrial level shunting by limited color doppler interrogation. AORTA Mild aortic dilatation at the level of the sinuses of Valsalva. MITRAL VALVE Structurally normal mitral valve. No mitral valve stenosis or regurgitation. AORTIC VALVE Trace to mild aortic valve regurgitation. TRICUSPID VALVE Structurally normal tricuspid valve. No tricuspid valve stenosis or regurgitation. PULMONARY VALVE The pulmonary valve is not well visualized. VESSELS The inferior vena cava is normal in size. PERICARDIUM No pericardial effusion. Doug Snider MD (Electronically Signed) Final Date:14 November 2017 09:40
[2017-11-14 12:00] VITALS: BP 118/64; PULSE 82; RESP 18; TEMP 98.5; O2SAT 95
--- NOTE | 2017-11-14 13:20 | HHI.DCPOC ---
Discharge Care Plan Goals to Promote Your Health * To prevent worsening of your condition and complications * To maintain your health at the optimal level Directions to Meet Your Goals Take your medications as prescribed Follow your dietary instruction Follow activity as directed Keep your appointments as scheduled Take your immunizations and boosters as scheduled If your symptoms worsen call your PCP, if no PCP go to Urgent Care Center or Emergency Room Smoking is Dangerous to Your Health. Avoid second hand smoke Call the 24-hour hour crisis hotline for domestic abuse at Shana Darling MD Nov 14, 2017 13:20
== END 2017-11-14 14:00 | disposition home or self-care (01) ==
LOC: PHED 21:24 → PHEDA 23:30 → PH3A 11-13 02:17
PROVIDERS: ADMIT Hospitalist; ATTEND Hospitalist
DX: R07.89 Other chest pain (principal); I25.10 Atherosclerotic heart disease of native coronary artery without angina pectoris; I42.9 Cardiomyopathy, unspecified; I50.20 Unspecified systolic (congestive) heart failure; I11.0 Hypertensive heart disease with heart failure; I25.2 Old myocardial infarction; R10.11 Right upper quadrant pain; K21.9 Gastro-esophageal reflux disease without esophagitis; F41.9 Anxiety disorder, unspecified; K80.20 Calculus of gallbladder without cholecystitis without obstruction; Z86.74 Personal history of sudden cardiac arrest; Z95.0 Presence of cardiac pacemaker; Z95.5 Presence of coronary angioplasty implant and graft; Z87.820 Personal history of traumatic brain injury; Z96.1 Presence of intraocular lens; Z90.710 Acquired absence of both cervix and uterus; Z96.653 Presence of artificial knee joint, bilateral
CPT/HCPCS: 71010; 76705; 78452; 80053; 82550; 83880; 84484; 85025; 85027; 85610; 85730; 93005; 93017; 93306; 96372; 99285; A9502; G0378; J1644; J2785